=== PATIENT | male | born 1995 | race Caucasian/White ===

== ENCOUNTER 2017-04-07 08:20 | Emergency (ER) | payer BC ==
[~2017-04-07] VITALS: Ht 182.9 cm; Wt 93.4 kg
[2017-04-07] MEDS ORDERED: COZAAR 25 MG TA25 M1 PO (08:29)
[2017-04-07] MEDS ORDERED: ALEVE220 MG PO (08:30)
[2017-04-07] MEDS ORDERED: VITAMIN B-12500 MCG PO (08:30)
[2017-04-07 09:42] LABS: HEMATOCRIT 40.3 % (42.0-52.0); HEMOGLOBIN 12.9 gm/dL (14.0-18.0); MCH 19.5 pg (26.0-34.0); MCHC 31.9 g/dL (28.0-37.0); MCV 61.1 fL (80.0-100.0); PLATELET COUNT 223 thou/uL (150-400); RDW 15.4 % (10.5-14.5); URINE BILIRUBIN NEGATIVE (Negative); URINE BLOOD NEGATIVE (Negative); URINE COLOR YELLOW; URINE GLUCOSE-RANDOM* NEGATIVE (Negative); URINE KETONES NEGATIVE (Negative); URINE NITRITE NEGATIVE (Negative); URINE PROTEIN (DIPSTICK) NEGATIVE (Negative); URINE SPECIFIC GRAVITY >= 1.030 (1.003-1.035); URINE UROBILINOGEN 0.2 E.U./dl (0.2-1.0); WBC 6.6 thou/uL (4.0-11.0)
[2017-04-07 09:43] LABS: MANUAL DIFF YES
[2017-04-07 09:51] LABS: CALCIUM 9.3 mg/dL (8.5-10.1)
[2017-04-07 09:56] LABS: ALBUMIN 4.3 g/dL (3.4-5.0); DIRECT BILIRUBIN 0.1 mg/dL (<0.1-0.3); TOTAL BILIRUBIN 0.5 mg/dL (<0.1-1.0); TOTAL PROTEIN 7.8 g/dL (6.4-8.2)
[2017-04-07] MEDS ORDERED: ONDANSETRON HCL4 M2 PO (10:41)
[2017-04-07] MEDS ORDERED: BENTYL 20 MG TA20 M1 PO (10:41)
[2017-04-07 11:00] LABS: ABSOLUTE NEUTROPHILS 5.5 thou/uL (1.4-8.2); TOTAL CELL COUNT 100
[2017-04-07 11:01] LABS: ANISOCYTOSIS 1+; HYPOCHROMASIA 2+; MICROCYTES 2+; POIKILOCYTOSIS SLIGHT
[2017-04-07 11:57] VITALS: BP 142/65
== END 2017-04-07 12:00 | disposition home or self-care (01) ==
LOC: ER 08:20
PROVIDERS: Nurse Practitioner
DX: R19.7 Diarrhea, unspecified (principal); R10.30 Lower abdominal pain, unspecified; I10 Essential (primary) hypertension